=== PATIENT | male | born 1980 | race Caucasian/White ===

== ENCOUNTER 2021-01-19 13:08 | Emergency (ER) | payer BC ==
[~2021-01-19] VITALS: Ht 193 cm; Wt 91.8 kg
[2021-01-19 13:14] VITALS: BP 111/63; Ht 193 cm; Wt 91.8 kg
[2021-01-19 13:44] LABS: BASOPHILS 0.1 % (0-2); EOSINOPHILS 0 % (0-7); HEMATOCRIT 43.9 % (42.0-54.0); HEMOGLOBIN 15.1 g/dL (13.5-17.5); LYMPHOCYTES 2.7 % (15-50); MCH 33.2 pg (26.0-34.0); MCHC 34.3 g/dL (31.0-37.0); MCV 96.5 fL (80.0-100.0); MEAN PLATELET VOLUME 7.5 fL (7.4-10.4); MONOCYTES 3.6 % (2-11); NEUTROPHILS 93.6 % (40-80); PLATELET COUNT 187 10x3/uL (130-400); RBC 4.55 10x6/uL (4.20-6.10); RDW 13.3 % (11.5-14.5); WBC 15.2 10x3/uL (4.8-10.8)
[2021-01-19 13:56] LABS: CALC OSMOLALITY 277 mosm/kg (275-300); CALCIUM 9.1 mg/dL (8.5-10.1); CARBON DIOXIDE 22.3 mmol/L (21.0-32.0); CHLORIDE - SERUM 103 mmol/L (98-107); CREATININE - SERUM 1.1 mg/dL (0.6-1.3); GLUCOSE 114 mg/dL (74-106); POTASSIUM - SERUM 3.3 mmol/L (3.5-5.1); SODIUM 138 mmol/L (136-145); UREA NITROGEN 16 mg/dL (7-18); eGFR NON AFRICAN AMERICAN 79 mL/min (90-120)
[2021-01-19 14:01] LABS: BACTERIA FEW HPF (<MOD); BILIRUBIN NEGATIVE (NEGATIVE); KETONE 1+ mg/dL (< 1+); NITRITE NEGATIVE (NEGATIVE); PH 8.5 (5.0-8.0); SQUAMOUS EPITHELIAL <1 HPF (0-4); UROBILINOGEN NORMAL mg/dL (< 2); WHITE CELLS - URINE 1 HPF (0-1)
[2021-01-19 14:04] LABS: ALBUMIN 4.4 g/dL (3.4-5.0); ALKALINE PHOSPHATASE 84 U/L (30-120); ALT (SGPT) 33 U/L (10-68); BILIRUBIN - TOTAL 1.77 mg/dL (0.2-1.3); LIPASE 77 U/L (73-393); PROTEIN - SERUM 7.6 g/dL (6.4-8.2)
[2021-01-19] MEDS ORDERED: FLAGYL500 MG PO (15:41)
== END 2021-01-19 16:42 | disposition home or self-care (01) ==
LOC: D.ER 13:08
PROVIDERS: Family Medicine
DX: R10.31 Right lower quadrant pain (principal); K52.9 Noninfective gastroenteritis and colitis, unspecified